=== PATIENT | female | born 1965 | race Caucasian/White ===

== ENCOUNTER → 2017-05-04 | Day surgery (SDC) | payer OTHER ==
[~2017-05-04] VITALS: Ht 154.9 cm; Wt 67.5 kg
[2017-05-04] VITALS (21 sets, daily range): BP systolic 107–132; BP diastolic 53–85; PULSE 82–112; RESP 12–20; Ht 154.9 cm; Wt 67.5 kg
[~2017-05-04] MED LIST: CEFAZOLIN 1 GM INJ ONE; DEXAMETHASONE 4 MG/ML 1 ML INJ ONE; DIPHENHYDRAMINE 50 MG INJ IV PRN; FAMOTIDINE 20 MG INJ ONE; HYDROmorphONE (0.2 MG/ML) 10ML SYG IV PRN; KETOROLAC 30 MG INJ ONE; LIDOCAINE 1% (MDV) 20 ML INJ ONE; MEPERIDINE 25 MG INJ IV PRN; METOCLOPRAMIDE 10 MG INJ IV PRN; MIDAZOLAM 1 MG/ML 2 ML INJ ONE; OMEP40CA6 PO; ONDANSETRON 4 MG INJ IV PRN; ONDANSETRON 4 MG INJ ONE; PROPOFOL 20 ML ONE; tylenol prn
--- NOTE | 2017-05-04 12:55 | SIPON ---
Date/Time of Note Date/Time of Note DATE: 05/04/17 TIME: 12:54 Operative Report Preoperative Diagnosis Atypical hyperplasia right breast Postoperative Diagnosis Same Operation/Procedure Performed Right needle directed excisional biopsy Surgeon see signature line research program assistant Dr Craig Anesthesia: general Estimated blood loss: 10 - 50 ml's Transfusion Required none Specimen Right breast specimen Grafts/Implants none Complications none GINNA HURTADO MD May 04, 2017 12:55
--- NOTE | 2017-05-04 13:09 | OPR ---
DATE OF OPERATION: 05/04/2017 PREOPERATIVE DIAGNOSIS: Right breast lesion. PREOPERATIVE DIAGNOSIS: Right breast lesion. POSTOPERATIVE DIAGNOSIS: Right breast lesion. PROCEDURE: Needle-directed right breast excisional biopsy. ANESTHESIA: General. ANESTHESIOLOGIST: Cory Rankin MD. SURGEON: Luís Eason MD. DENTISTRY TEACHER: Doyle Craig MD. INDICATIONS FOR PROCEDURE: The patient is a 51-year-old female who presented with first screening m ammography. Of note, she had some accessory breast tissue in the axillary region. On mammography w ithin this area of accessory breast tissue, she was found to have suspicious findings. Core biopsy revealed atypical ductal hyperplasia and complete surgical excisional biopsy was recommended. Lissett schulte consented and she was scheduled for surgery. DESCRIPTION OF PROCEDURE: On the morning of surgery, the patient presented to [facility] where she underwent localization of the lesion performed by attending radiologis t, Dr. Shahram Armando. Subsequently, she was brought to the operating theater. The right breast a nd axillary region was prepped and draped in usual sterile fashion. Approximately 3 to 4 cm incisio n was made over the palpable accessory right breast tissue within the axilla. Subcutaneous tissue w as dissected with cautery. Wide circumferential dissection of the tissue associated with the wire t hen took place. Specimen was elevated, transected, and sent for radiographic confirmation of captur e. Capture was confirmed. There was some additional accessory tissue that was resected separately and sent for permanent pathologic analysis. The wound was then irrigated. Minimal bleeding was con trolled with cautery, and the skin was reapproximated with 4-0 Vicryl sutures in subcuticular fashio n and Dermabond was applied. The patient tolerated procedure well. The estimated blood loss was ap proximately 20 mL. There were no complications and the patient was transported in stable condition to the recovery room. Dictated By: LUÍS EASON MD TL/NTS Conf#: [id number] DID#: [id number] CC: DOYLE CRAIG MD;*EndCC*
== END | disposition home or self-care (01) ==
LOC: SDS 07:26
PROVIDERS: ATTEND Surgery Surgical Oncology
DX: D24.1 Benign neoplasm of right breast (principal)
CPT/HCPCS: 19120; 88307; J0690; J1100; J1885; J2250; J2405; Z7512; Z7610